=== PATIENT | female | born 2005 | race Caucasian/White ===

== ENCOUNTER 2025-02-23 13:56 | Emergency (ER) | payer OTHER, SELFPAY ==
--- NOTE | 2025-02-23 14:07 | DI.RAD.S_ITS ---
PROCEDURE: XR FINGER LT MIN 2V INDICATIONS: CRUSH INJURY TECHNIQUE: AP hand, 2 views of the 1st finger(s) acquired. COMPARISON: None. FINDINGS: Bones: No fractures or dislocations. No suspicious bony lesions. Soft tissues: No suspicious soft tissue calcifications. IMPRESSION: No displaced fracture can be seen on this plain film study. Dictated by: Cristhian Nelson M.D. on 02/23/2025 at 13:43 Approved by: Cristhian Nelson M.D. on 02/23/2025 at 13:43
[2025-02-23 14:08] VITALS: BP 139/83; PULSE 63; RESP 18; TEMP 36.4; O2SAT 98; BMI 19.5
--- NOTE | 2025-02-23 14:16 | ED_ITS ---
HPI - Extremity Injury (Upper) <Tiana Barney PA-C - Last Filed: 02/23/25 15:20> General Chief Complaint: Extremity Injury, Upper Stated Complaint: T-3 LT thumb crushed - not getting better Time Seen by Provider: 02/23/25 14:12 Source: patient Mode of arrival: Ambulatory History of Present Illness HPI narrative: Ms. Fierro Is a very pleasant 19-year-old female with no reported past medical history who presents to the emergency department for a left thumb crush injury that occurred on Monday. patient accidentally closed the distal tip of her left thumb in a car door on Monday. She had some bleeding of the thumb and has continued to have pain and swelling of the distal phalanx of the left thumb. She has a very small subungual hematoma at the base of the nail. She still has good sensation and strength of the left thumb, she does have intact range of motion. No numbness tingling or weakness, no other injuries. She took tylenol [employer]. She is right-hand dominant. Related Data Allergies Allergy/AdvReac Type Severity Reaction Status Date / Time No Known Drug Allergies Allergy Verified 02/23/25 14:11 Review of Systems <Tiana Barney PA-C - Last Filed: 02/23/25 15:20> Review of Systems ROS Unobtainable: All systems reviewed & are unremarkable except as noted in HPI and below Patient History <Tiana Barney PA-C - Last Filed: 02/23/25 15:20> Social History Smoking Status: Never smoker Smoking Status: Never smoker Exam <Tiana Barney PA-C - Last Filed: 02/23/25 15:20> Narrative Exam Narrative: GENERAL: 19 year old patient appears stated age. Well-developed patient, in no acute distress. HEAD: Atraumatic. Normocephalic. CARDIOVASCULAR: Regular rate RESPIRATORY: Nonlabored respirations. Speaking in clear, full sentences. EXTREMITIES: Mild edema of the left thumb distal phalanx with scant dried blood around nail fold and very small subungual hematoma at base of nail. She still has brisk capillary refill on the distal phalanx and sensation intact to light touch. Range of motion is intact at the MCP and the D IP however pain with range of motion of the IP. NEURO: AOx3. Clear speech. Moves all 4 extremities appropriately. SKIN: Scant blood around left thumbnail but no active bleeding Or open wound. Initial Vital Signs Initial Vital Signs: Vital Signs Temperature 97.6 F 02/23/25 14:08 Pulse Rate 63 02/23/25 14:08 Respiratory Rate 18 02/23/25 14:08 Blood Pressure 139/83 02/23/25 14:08 Pulse Oximetry 98 02/23/25 14:08 Oxygen Delivery Method Room Air 02/23/25 14:08 <Shima Beard DO - Last Filed: 02/24/25 09:21> Initial Vital Signs Initial Vital Signs: Vital Signs Temperature 97.6 F 02/23/25 14:08 Pulse Rate 63 02/23/25 14:08 Respiratory Rate 18 02/23/25 14:08 Blood Pressure 139/83 02/23/25 14:08 Pulse Oximetry 98 02/23/25 14:08 Oxygen Delivery Method Room Air 02/23/25 14:08 Course <VIKTORIYA Collins Last Filed: 02/23/25 15:20> Orders Ordered: Discontinued Medications Ibuprofen (Ibuprofen 400 Mg Tablet) 400 mg PO NOW ONE Stop: 02/23/25 14:23 Last Admin: 02/23/25 14:57 Dose: 400 mg Documented By: MARGARET Vital Signs Vital signs: Vital Signs - 8 hr 02/23/25 14:08 Temperature 97.6 F Pulse Rate 63 Respiratory Rate 18 Blood Pressure 139/83 Pulse Oximetry 98 Oxygen Delivery Method Room Air <DO Sam Rivera Last Filed: 02/24/25 09:21> Orders Ordered: Discontinued Medications Ibuprofen (Ibuprofen 400 Mg Tablet) 400 mg PO NOW ONE Stop: 02/23/25 14:23 Last Admin: 02/23/25 14:57 Dose: 400 mg Documented By: MARGARET Vital Signs Vital signs: Vital Signs - 8 hr 02/23/25 14:08 Temperature 97.6 F Pulse Rate 63 Respiratory Rate 18 Blood Pressure 139/83 Pulse Oximetry 98 Oxygen Delivery Method Room Air MDM - Extremity Injury (Upper) <VIKTORIYA Collins Last Filed: 02/23/25 15:20> Medical Records Medical records narrative: None available for review Imaging Data Left Finger X-ray: Radiologist's Impression: PROCEDURE: XR FINGER LT MIN 2V INDICATIONS: CRUSH INJURY TECHNIQUE: AP hand, 2 views of the 1st finger(s) acquired. COMPARISON: None. FINDINGS: Bones: No fractures or dislocations. No suspicious bony lesions. Soft tissues: No suspicious soft tissue calcifications. IMPRESSION: No displaced fracture can be seen on this plain film study. Dictated by: Cristhian Nelson M.D. on 02/23/2025 at 13:43 Approved by: Cristhian Nelson M.D. on 02/23/2025 at 13:43 [facility] Narrative Medical decision making narrative: 19-year-old female with no reported past medical history who presents to the emergency department for a left thumb crush injury that occurred on Monday. Differential diagnosis includes but is not limited to crush injury, phalanx fracture, subungual hematoma, etc. On exam the patient is in no acute distress, nontoxic appearing, vital signs within normal limits. Her left thumb is neurovascularly intact, she has swelli ng of the distal phalanx, pain, small subungual hematoma and scant dried blood. X-ray obtained, we will treat pain with ibuprofen, she declines need for test prior to ibuprofen. Finger XR reveals no displaced fracture can be seen. Patient feeling better after ED treatment including ice, splint, ibuprofen. Discussed proper wound care, splint for comfort, ED return precautions. Patient verbalized understanding of all information agreeable with the plan. She is stable for discharge home. Discharge Plan Departure Patient Disposition: Home Clinical Impression: Crushing injury of left thumb Qualifiers: Encounter type: initial encounter Qualified Code(s): S67.02XA - Crushing injury of left thumb, initial encounter Instructions: DI for Subungual Hematoma Activity Restrictions/Additional Instructions: Thank you for coming to the emergency department. Today your x-ray showed no fractures or breaks in your left thumb bones. Please keep the wound clean, dry, covered with ointment. Please use the splint on your left thumb as needed for comfort /support, you can remove it when the thumb feels better. Please use RICE therapy for your pain in addition to ibuprofen/acetaminophen. Rest the painful area. Ice the area of pain/swelling for at least 15 minutes, 4x a day. Compress the area of swelling using a brace, wrap, or splint if applied. Elevate the painful or swollen extremity by supporting it above the level of the heart with pillows when sitting or laying. Please take Ibuprofen (Motrin/Advil) or Acetaminophen (Tylenol) for pain. These are available over the counter. You may take Ibuprofen 600 mg every 8 hours with food for pain. You may also take Acetaminophen 650 mg every 4-6 hours for pain. Do not exceed 3000 mg of Tylenol a day as this can cause liver damage. Do not drink alcohol with either of these medications. Please follow up with your primary care doctor within the next 2-3 days for ER follow-up. (If you do not have a PCP you can call [phone]. to schedule an appointment with an [facility] Primary Care Provider) IF YOU DEVELOP ANY NEW OR WORSENING SYMPTOMS, RETURN TO THE ER! Please read the attached instructions, they highlight more specific treatments and interventions for you at home. Thank you for letting me participate in your care, Tiana Barney PA-C Stand Alone Forms: Patient Portal/API/Survey, Work Release Note ED Sign-out <Shima Beard DO - Last Filed: 02/24/25 09:21> Cosign ED Attending Cosmaryature Attestation: I was available for consultation.
[2025-02-23] MEDS: IBUPROFEN 400 MG TABLET PO (14:57)
[2025-02-23 15:36] VITALS: BP 112/53; PULSE 68; RESP 18; O2SAT 99
== END 2025-02-23 15:36 | disposition home or self-care (01) ==
PROVIDERS: Emergency Provider Physician Assistant
DX: S67.02XA Crushing injury of left thumb, initial encounter (principal); W23.0XXA Caught, crushed, jammed, or pinched between moving objects, initial encounter
CPT/HCPCS: 29130; 73140; 99283